=== PATIENT | male | born 1970 | race Caucasian/White ===

== ENCOUNTER 2017-02-23 21:15 | Inpatient (IN) | payer SELFPAY ==
[~2017-02-23] VITALS: Ht 172.7 cm; Wt 72.5 kg
[2017-02-23 22:28] LABS: BASOPHIL COUNT 0.1 K/uL (0-0.1); EOSINOPHIL (%) 1.7 % (0-5); EOSINOPHIL COUNT 0.2 K/uL (0-0.3); HEMATOCRIT 28.1 % (38.0-50.0); IMMATURE GRANULOCYTE (%) 1.3 % (0.0-0.7); IMMATURE GRANULOCYTE COUNT 0.2 K/uL; INSTRUMENT ABS NEUTROPHIL CT 11.2 K/uL; LYMPHOCYTE COUNT 1.6 K/uL (1.0-2.8); MCH 28.1 PG (29.0-34.0); MCHC 32.4 G/DL (30.0-36.0); MCV 86.7 FL (86-99); MEAN PLAT.VOLUME 9.1 uM^3 (9.0-12.4); MONOCYTE (%) 7.3 % (3-12); NEUTROPHIL (%) 78.1 % (45-76); NEUTROPHIL COUNT 11.2 K/uL (1.8-6.4); PLATELET COUNT 396 K/uL (156-360); RBC DIS.WIDTH-CV 13.4 % (11.8-14.6); RBC DIS.WIDTH-SD 42.5 % (39-53); RED BLOOD COUNT 3.24 M/uL (4.00-5.50); WHITE BLOOD COUNT 14.3 K/uL (4.1-10.2)
[2017-02-23 22:36] LABS: CHLORIDE 104 mEq/L (99-109); POTASSIUM 3.5 mEq/L (3.7-5.4); SODIUM 142 mEq/L (136-147)
[2017-02-23 22:38] LABS: GLUCOSE 138 mg/dL (70-99)
[2017-02-23 22:39] LABS: ANION GAP 14 MEQ/L (2-14)
[2017-02-23 22:42] LABS: GFR ESTIMATE (CALCULATED) > 59 mL/min/
[2017-02-23 22:43] LABS: UREA NITROGEN (BUN) 12 mg/dL (9-23)
[2017-02-23 22:48] LABS: TROP-I INTERPRETATION NEGATIVE; TROPONIN-I < 0.01 ng/mL (0.0-0.30)
[2017-02-24] MEDS ORDERED: OXYMORPHONE HCL15 MG PO (01:16)
[2017-02-24] MEDS ORDERED: GABAPENTIN600 MG PO (01:16)
[2017-02-24] MEDS ORDERED: OXYCODONE HCL15 MG PO (01:16)
[2017-02-24 02:10] LABS: BODY FLUID EOSINOPHILS 3 % (0-25); BODY FLUID WBC'S 159 /MM^3 (0-500); MONONUCLEAR WBC'S 54 %; POLYNUCLEAR WBC'S 43 % (0-25); TYPE OF FLUID PLEURAL
[2017-02-24 02:44] LABS: BODY FLUID RBC'S 0 /MM^3 (0-100)
[2017-02-24 02:45] LABS: COMMENT MANY MACROHPAGES
[2017-02-24 02:45] LABS: BODY FLUID PROTEIN 4.7 G/DL
[2017-02-24 05:14] VITALS: BP 89/58
[2017-02-24 08:00] VITALS: BP 108/72
[2017-02-24 10:15] LABS: HEMATOCRIT 25.9 % (38.0-50.0); MCH 28.5 PG (29.0-34.0); MCHC 32.4 G/DL (30.0-36.0); MCV 87.8 FL (86-99); MEAN PLAT.VOLUME 8.9 uM^3 (9.0-12.4); PLATELET COUNT 352 K/uL (156-360); RBC DIS.WIDTH-CV 13.6 % (11.8-14.6); RBC DIS.WIDTH-SD 43.8 % (39-53); RED BLOOD COUNT 2.95 M/uL (4.00-5.50); WHITE BLOOD COUNT 12.4 K/uL (4.1-10.2)
[2017-02-24 10:44] LABS: ANION GAP 8 MEQ/L (2-14); CHLORIDE 105 MEQ/L (99-109); POTASSIUM 3.5 MEQ/L (3.7-5.4); SAMPLE HEMOLYSIS CHECK 0; SAMPLE ICTERIC CHECK 0; SAMPLE LIPEMIA CHECK 0; SODIUM 139 MEQ/L (136-147)
[2017-02-24 10:50] LABS: GFR ESTIMATE (CALCULATED) > 59 mL/min/; GLUCOSE 114 mg/dL (70-99); UREA NITROGEN (BUN) 11 mg/dL (9-23)
[2017-02-24 16:45] LABS: ADD MIUA? NO; BILIRUBIN NEGATIVE; BLOOD NEGATIVE; COLOR YELLOW ((YELLOW)); GLUCOSE (STRIP) NEGATIVE; KETONES NEGATIVE; LEUKOCYTES NEGATIVE; NITRITE NEGATIVE; PROTEIN (STRIP) NEGATIVE; UCUL ADDED? NO
[2017-02-24 16:52] LABS: SPECIFIC GRAVITY > 1.060 (1.000-1.030)
[2017-02-24 17:00] VITALS: BP 103/64
[2017-02-24 19:31] VITALS: BP 110/64
[2017-02-25 00:21] VITALS: BP 95/53
[2017-02-25 03:38] VITALS: BP 103/55
[2017-02-25 07:40] VITALS: BP 101/59
[2017-02-25 08:21] LABS: EOSINOPHIL COUNT 0.3 K/uL (0-0.3); IMMATURE GRANULOCYTE (%) 1.4 % (0.0-0.7); IMMATURE GRANULOCYTE COUNT 0.1 K/uL; INSTRUMENT ABS NEUTROPHIL CT 6.7 K/uL; LYMPHOCYTE COUNT 1.6 K/uL (1.0-2.8); MCH 27.5 PG (29.0-34.0); MCHC 31.5 G/DL (30.0-36.0); MCV 87.2 FL (86-99); MEAN PLAT.VOLUME 8.9 uM^3 (9.0-12.4); MONOCYTE (%) 7.8 % (3-12); MONOCYTE COUNT 0.7 K/uL (0-0.8); NEUTROPHIL (%) 70.6 % (45-76); NEUTROPHIL COUNT 6.7 K/uL (1.8-6.4); PLATELET COUNT 395 K/uL (156-360); RBC DIS.WIDTH-CV 13.6 % (11.8-14.6); RBC DIS.WIDTH-SD 43.7 % (39-53); RED BLOOD COUNT 2.98 M/uL (4.00-5.50); WHITE BLOOD COUNT 9.4 K/uL (4.1-10.2)
[2017-02-25 08:24] LABS: INTERNAL CONTROL VALID? YES
[2017-02-25 08:50] LABS: ANION GAP 7 MEQ/L (2-14); CHLORIDE 104 MEQ/L (99-109); GFR ESTIMATE (CALCULATED) > 59 mL/min/ (58.99-99999); GLUCOSE 94 mg/dL (70-99); POTASSIUM 4.2 MEQ/L (3.7-5.4); SAMPLE HEMOLYSIS CHECK 0; SAMPLE ICTERIC CHECK 0; SAMPLE LIPEMIA CHECK 0; SODIUM 140 MEQ/L (136-147); UREA NITROGEN (BUN) 7 mg/dL (9-23)
[2017-02-25 11:04] VITALS: BP 96/60
[2017-02-25 13:56] LABS: MCV 86.8 FL (86-99)
[2017-02-25 14:27] LABS: IRON 18 MCG/DL (35-150)
[2017-02-25 14:42] LABS: FERRITIN 187 NG/ML (22-322)
[2017-02-25] MEDS ORDERED: SYNTHROID100 MCG PO (15:18)
[2017-02-25 19:56] VITALS: BP 104/63
[2017-02-26 00:16] VITALS: BP 97/64
[2017-02-26 04:16] VITALS: BP 105/67
[2017-02-26 07:22] VITALS: BP 105/58
[2017-02-26 08:31] LABS: HEMATOCRIT 26.4 % (38.0-50.0); MCH 28.1 PG (29.0-34.0); MCHC 32.2 G/DL (30.0-36.0); MCV 87.4 FL (86-99); MEAN PLAT.VOLUME 9.1 uM^3 (9.0-12.4); PLATELET COUNT 412 K/uL (156-360); RBC DIS.WIDTH-CV 13.7 % (11.8-14.6); RBC DIS.WIDTH-SD 43.8 % (39-53); RED BLOOD COUNT 3.02 M/uL (4.00-5.50); WHITE BLOOD COUNT 10.5 K/uL (4.1-10.2)
[2017-02-26 11:05] VITALS: BP 94/63
[2017-02-26 15:24] VITALS: BP 105/64
[2017-02-26 23:31] VITALS: BP 105/62
[2017-02-27 07:04] VITALS: BP 103/58
[2017-02-27 09:16] LABS: HEMATOCRIT 27.7 % (38.0-50.0); MCH 27.5 PG (29.0-34.0); MCHC 31.4 G/DL (30.0-36.0); MCV 87.7 FL (86-99); MEAN PLAT.VOLUME 8.8 uM^3 (9.0-12.4); PLATELET COUNT 453 K/uL (156-360); RBC DIS.WIDTH-CV 13.8 % (11.8-14.6); RBC DIS.WIDTH-SD 44.4 % (39-53); RED BLOOD COUNT 3.16 M/uL (4.00-5.50); WHITE BLOOD COUNT 11.5 K/uL (4.1-10.2)
[2017-02-27 09:25] LABS: INTER. NORMALIZED RATIO 1.2; PROTHROMBIN TIME 13.7 SEC (10.2-12.9)
[2017-02-27 09:28] LABS: PTT 43.5 SEC (25-37)
[2017-02-27 15:05] VITALS: BP 100/65
[2017-02-27 23:32] VITALS: BP 97/52
[2017-02-28 06:26] LABS: HEMATOCRIT 29.6 % (38.0-50.0); MCH 27.4 PG (29.0-34.0); MCHC 31.8 G/DL (30.0-36.0); MCV 86.3 FL (86-99); MEAN PLAT.VOLUME 8.7 uM^3 (9.0-12.4); PLATELET COUNT 474 K/uL (156-360); RBC DIS.WIDTH-CV 13.9 % (11.8-14.6); RBC DIS.WIDTH-SD 43.6 % (39-53); RED BLOOD COUNT 3.43 M/uL (4.00-5.50); WHITE BLOOD COUNT 14.3 K/uL (4.1-10.2)
[2017-02-28 06:57] LABS: ANION GAP 9 MEQ/L (2-14); CHLORIDE 97 MEQ/L (99-109); GFR ESTIMATE (CALCULATED) > 59 mL/min/ (58.99-99999); GLUCOSE 98 mg/dL (70-99); MAGNESIUM 1.7 mg/dl (1.3-2.7); POTASSIUM 4.6 MEQ/L (3.7-5.4); SAMPLE HEMOLYSIS CHECK 0; SAMPLE ICTERIC CHECK 0; SAMPLE LIPEMIA CHECK 0; SODIUM 137 MEQ/L (136-147); UREA NITROGEN (BUN) 7 mg/dL (9-23)
[2017-02-28 07:20] VITALS: BP 85/50
[2017-02-28 09:54] VITALS: BP 99/66
[2017-02-28 16:21] VITALS: BP 99/55
[2017-03-01 00:26] VITALS: BP 84/48; BP 97/62
[2017-03-01 06:57] LABS: HEMATOCRIT 26.3 % (38.0-50.0); MCH 27.8 PG (29.0-34.0); MCHC 32.3 G/DL (30.0-36.0); MCV 85.9 FL (86-99); MEAN PLAT.VOLUME 8.7 uM^3 (9.0-12.4); PLATELET COUNT 429 K/uL (156-360); RBC DIS.WIDTH-SD 44.3 % (39-53); RED BLOOD COUNT 3.06 M/uL (4.00-5.50); WHITE BLOOD COUNT 15.4 K/uL (4.1-10.2)
[2017-03-01 07:23] VITALS: BP 99/58
[2017-03-01 15:27] VITALS: BP 89/55
[2017-03-01 17:58] VITALS: BP 98/62
[2017-03-02 00:39] VITALS: BP 110/68
[2017-03-02 07:24] VITALS: BP 106/64
[2017-03-02 15:17] VITALS: BP 108/64
[2017-03-02 23:41] VITALS: BP 106/51
[2017-03-03 06:22] LABS: HEMATOCRIT 24.5 % (38.0-50.0); MCH 27.3 PG (29.0-34.0); MCHC 31.8 G/DL (30.0-36.0); MCV 85.7 FL (86-99); MEAN PLAT.VOLUME 8.9 uM^3 (9.0-12.4); PLATELET COUNT 471 K/uL (156-360); RBC DIS.WIDTH-CV 13.9 % (11.8-14.6); RBC DIS.WIDTH-SD 43.4 % (39-53); RED BLOOD COUNT 2.86 M/uL (4.00-5.50); WHITE BLOOD COUNT 16.8 K/uL (4.1-10.2)
[2017-03-03 06:53] LABS: ANION GAP 7 MEQ/L (2-14); CHLORIDE 102 MEQ/L (99-109); GFR ESTIMATE (CALCULATED) > 59 mL/min/ (58.99-99999); POTASSIUM 4.3 MEQ/L (3.7-5.4); SAMPLE HEMOLYSIS CHECK 0; SAMPLE ICTERIC CHECK 0; SAMPLE LIPEMIA CHECK 0; SODIUM 139 MEQ/L (136-147); UREA NITROGEN (BUN) 10 mg/dL (9-23)
[2017-03-03 06:57] LABS: GLUCOSE 151 mg/dL (70-99)
[2017-03-03 07:49] VITALS: BP 95/54
[2017-03-03 16:19] VITALS: BP 120/76
[2017-03-03 23:51] VITALS: BP 109/69
[2017-03-04 06:43] LABS: EOSINOPHIL (%) 0.1 % (0-5); HEMATOCRIT 26.7 % (38.0-50.0); IMMATURE GRANULOCYTE (%) 4.5 % (0.0-0.7); IMMATURE GRANULOCYTE COUNT 0.7 K/uL; INSTRUMENT ABS NEUTROPHIL CT 12.4 K/uL; LYMPHOCYTE COUNT 2.1 K/uL (1.0-2.8); MCH 27.2 PG (29.0-34.0); MCHC 31.5 G/DL (30.0-36.0); MCV 86.4 FL (86-99); MEAN PLAT.VOLUME 8.8 uM^3 (9.0-12.4); MONOCYTE COUNT 1.2 K/uL (0-0.8); NEUTROPHIL (%) 75.2 % (45-76); NEUTROPHIL COUNT 12.4 K/uL (1.8-6.4); NRBC (%) 0.2 /100 WBC (0-0); PLATELET COUNT 508 K/uL (156-360); RBC DIS.WIDTH-SD 44.2 % (39-53); RED BLOOD COUNT 3.09 M/uL (4.00-5.50); WHITE BLOOD COUNT 16.4 K/uL (4.1-10.2)
[2017-03-04 07:09] LABS: ANION GAP 10 MEQ/L (2-14); CHLORIDE 103 MEQ/L (99-109); GFR ESTIMATE (CALCULATED) > 59 mL/min/ (58.99-99999); GLUCOSE 148 mg/dL (70-99); POTASSIUM 4.1 MEQ/L (3.7-5.4); SAMPLE HEMOLYSIS CHECK 0; SAMPLE ICTERIC CHECK 0; SAMPLE LIPEMIA CHECK 0; SODIUM 141 MEQ/L (136-147); UREA NITROGEN (BUN) 10 mg/dL (9-23)
[2017-03-04 07:44] VITALS: BP 94/52
[2017-03-04 14:49] LABS: TYPE OF FLUID PLEURAL
[2017-03-04 15:24] LABS: LACTATE DEHYDROGENASE 168 IU/L (20-246)
[2017-03-04 15:33] LABS: BODY FLUID RBC'S 206 /MM^3 (0-100); BODY FLUID WBC'S 1722 /MM^3 (0-500); RED CELL AREA COUNTED 18; RED CELL DILUTION 10; WBC AREA COUNTED 18; WBC DILUTION 10; WHITE CELL RAW COUNT 310
[2017-03-04 15:35] LABS: BODY FLUID EOSINOPHILS 0 % (0-25); MONONUCLEAR WBC'S 0 %; POLY RAW COUNT 100; POLYNUCLEAR WBC'S 100 % (0-25)
[2017-03-04 15:46] LABS: BODY FLUID LDH 239 IU/L; BODY FLUID PROTEIN 4.6 G/DL
[2017-03-04 16:15] VITALS: BP 125/73
[2017-03-04 23:32] VITALS: BP 116/71
[2017-03-05 06:55] LABS: HEMATOCRIT 29.2 % (38.0-50.0); MCH 26.5 PG (29.0-34.0); MCHC 30.8 G/DL (30.0-36.0); MCV 85.9 FL (86-99); MEAN PLAT.VOLUME 8.6 uM^3 (9.0-12.4); NRBC (%) 0.8 /100 WBC (0-0); PLATELET COUNT 622 K/uL (156-360); RBC DIS.WIDTH-CV 14.4 % (11.8-14.6); RBC DIS.WIDTH-SD 44.8 % (39-53); WHITE BLOOD COUNT 16.9 K/uL (4.1-10.2)
[2017-03-05 07:01] VITALS: BP 110/65
[2017-03-05 07:26] LABS: ABS NEUTROPHIL COUNT 11.3; ANISOCYTOSIS 1+; ATYPICAL LYMPHOCYTE 2.7 %; BAND NEUTROPHILS 2.7 % (0-8.0); BASOPHILS 0.9 %; EOSINOPHIL ABS CT 0; INSTRUMENT ABS NEUTROPHIL CT 11.2 K/uL; LYMPHOCYTES 21.4 % (15.0-45.0); METAMYELOCYTES 0.9 %; MYELOCYTES 1.8 %; NUCLEATED RBC'S 0.9; OVALOCYTES 1+; PLAT.SUFFICIENCY INCREASED; POIKILOCYTOSIS 1+; POLYCHROMASIA 1+; SEG.NEUTROPHILS 64.3 % (46.0-76.0)
[2017-03-05 07:28] LABS: ANION GAP 12 MEQ/L (2-14); CHLORIDE 103 MEQ/L (99-109); GFR ESTIMATE (CALCULATED) > 59 mL/min/ (58.99-99999); GLUCOSE 128 mg/dL (70-99); POTASSIUM 4.1 MEQ/L (3.7-5.4); SAMPLE HEMOLYSIS CHECK 0; SAMPLE ICTERIC CHECK 0; SAMPLE LIPEMIA CHECK 0; SODIUM 141 MEQ/L (136-147); UREA NITROGEN (BUN) 12 mg/dL (9-23)
[2017-03-05 15:15] VITALS: BP 123/74
[2017-03-05 23:40] VITALS: BP 110/56
[2017-03-06 06:21] LABS: HEMATOCRIT 27.5 % (38.0-50.0); MCH 26.6 PG (29.0-34.0); MCHC 30.9 G/DL (30.0-36.0); MCV 86.2 FL (86-99); MEAN PLAT.VOLUME 8.5 uM^3 (9.0-12.4); NRBC (%) 0.8 /100 WBC (0-0); PLATELET COUNT 566 K/uL (156-360); RBC DIS.WIDTH-CV 14.6 % (11.8-14.6); RED BLOOD COUNT 3.19 M/uL (4.00-5.50)
[2017-03-06 06:48] LABS: ANION GAP 8 MEQ/L (2-14); CHLORIDE 103 MEQ/L (99-109); GFR ESTIMATE (CALCULATED) > 59 mL/min/ (58.99-99999); GLUCOSE 107 mg/dL (70-99); SAMPLE HEMOLYSIS CHECK 0; SAMPLE ICTERIC CHECK 0; SAMPLE LIPEMIA CHECK 0; SODIUM 141 MEQ/L (136-147); UREA NITROGEN (BUN) 12 mg/dL (9-23)
[2017-03-06 06:49] LABS: MAGNESIUM 2.2 mg/dl (1.3-2.7)
[2017-03-06 07:51] VITALS: BP 124/72
[2017-03-06 15:50] VITALS: BP 130/74
[2017-03-07 00:11] VITALS: BP 123/84
[2017-03-07 07:03] LABS: HEMATOCRIT 29.9 % (38.0-50.0); MCH 26.7 PG (29.0-34.0); MCHC 31.4 G/DL (30.0-36.0); MCV 84.9 FL (86-99); MEAN PLAT.VOLUME 8.6 uM^3 (9.0-12.4); NRBC (%) 0.5 /100 WBC (0-0); PLATELET COUNT 592 K/uL (156-360); RBC DIS.WIDTH-CV 14.6 % (11.8-14.6); RBC DIS.WIDTH-SD 44.8 % (39-53); RED BLOOD COUNT 3.52 M/uL (4.00-5.50)
[2017-03-07 07:23] VITALS: BP 125/71
[2017-03-07 16:00] VITALS: BP 116/67
[2017-03-07 17:09] LABS: BODY FLUID PH 7.8 (())
[2017-03-07 23:51] VITALS: BP 112/69
[2017-03-08 06:47] LABS: HEMATOCRIT 30.4 % (38.0-50.0); MCH 26.8 PG (29.0-34.0); MCHC 30.9 G/DL (30.0-36.0); MCV 86.6 FL (86-99); MEAN PLAT.VOLUME 8.6 uM^3 (9.0-12.4); NRBC (%) 0.2 /100 WBC (0-0); PLATELET COUNT 594 K/uL (156-360); RBC DIS.WIDTH-CV 14.9 % (11.8-14.6); RBC DIS.WIDTH-SD 47.1 % (39-53); RED BLOOD COUNT 3.51 M/uL (4.00-5.50); WHITE BLOOD COUNT 12.8 K/uL (4.1-10.2)
[2017-03-08 07:18] LABS: ANION GAP 9 MEQ/L (2-14); CHLORIDE 102 MEQ/L (99-109); GFR ESTIMATE (CALCULATED) > 59 mL/min/ (58.99-99999); GLUCOSE 79 mg/dL (70-99); MAGNESIUM 2.4 mg/dl (1.3-2.7); POTASSIUM 5.1 MEQ/L (3.7-5.4); SAMPLE HEMOLYSIS CHECK 0; SAMPLE ICTERIC CHECK 0; SAMPLE LIPEMIA CHECK 0; SODIUM 141 MEQ/L (136-147); UREA NITROGEN (BUN) 19 mg/dL (9-23)
[2017-03-08 07:28] VITALS: BP 115/71
[2017-03-08 15:22] VITALS: BP 103/56
[2017-03-08 23:40] VITALS: BP 109/61
[2017-03-09 06:41] LABS: MCH 26.7 PG (29.0-34.0); MCHC 30.6 G/DL (30.0-36.0); MCV 87.1 FL (86-99); MEAN PLAT.VOLUME 8.6 uM^3 (9.0-12.4); PLATELET COUNT 596 K/uL (156-360); RBC DIS.WIDTH-SD 47.4 % (39-53); RED BLOOD COUNT 3.56 M/uL (4.00-5.50); WHITE BLOOD COUNT 16.3 K/uL (4.1-10.2)
[2017-03-09 07:09] VITALS: BP 113/70
[2017-03-09 07:12] LABS: ANION GAP 8 MEQ/L (2-14); CHLORIDE 105 MEQ/L (99-109); GFR ESTIMATE (CALCULATED) > 59 mL/min/ (58.99-99999); GLUCOSE 85 mg/dL (70-99); SAMPLE HEMOLYSIS CHECK 0; SAMPLE ICTERIC CHECK 0; SAMPLE LIPEMIA CHECK 0; SODIUM 139 MEQ/L (136-147); UREA NITROGEN (BUN) 19 mg/dL (9-23)
[2017-03-09 07:14] LABS: POTASSIUM 3.9 MEQ/L (3.7-5.4)
[2017-03-09] MEDS ORDERED: FERROUS SULFAT325 MG PO (12:15)
[2017-03-09] MEDS ORDERED: NICOTINE PATCH1 EAC2 TD (12:15)
[2017-03-09] MEDS ORDERED: PREDNISONE20 MG PO (12:16)
[2017-03-09] MEDS ORDERED: AMOX TR-K CLV1 EAC4 PO (12:19)
[2017-03-09] MEDS ORDERED: DULERA 100 MCG/13 GM IH (13:50)
== END 2017-03-09 14:23 | disposition home or self-care (01) | DRG 189 ==
LOC: EME 21:15 → 5SOUTH 02-24 03:53 → EDOF 02-24 03:53 → ENRESERV 02-24 03:54 → 5SOUTH 02-24 05:03
PROVIDERS: Emergency Medicine; Family Medicine; Hospitalist; Internal Medicine; Nurse Practitioner Adult Health; Physician Assistant Medical
DX: J96.01 Acute respiratory failure with hypoxia (principal); J13 Pneumonia due to Streptococcus pneumoniae; J90 Pleural effusion, not elsewhere classified; J44.0 Chronic obstructive pulmonary disease with (acute) lower respiratory infection; D50.9 Iron deficiency anemia, unspecified; E03.9 Hypothyroidism, unspecified; F41.9 Anxiety disorder, unspecified; G89.29 Other chronic pain; M54.9 Dorsalgia, unspecified; F17.210 Nicotine dependence, cigarettes, uncomplicated; Z80.0 Family history of malignant neoplasm of digestive organs; Z91.14 Patient's other noncompliance with medication regimen
CPT/HCPCS: 32557; 71010; 71020; 71030; 71250; 71260; 76942; 80048; 81003; 82272; 82607; 82728; 82746; 82945; 83516 90; 83540; 83605; 83615; 83615 91; 83735; 83986 90; 84155; 84157; 84439; 84443; 84466; 84484; 85014; 85018; 85025; 85027; 85610; 85730; 87040; 87070; 87075; 87116; 87205; 87206; 87449; 88108; 88305; 89051; 93005; 94010; 94640; 94640 76; 94664; 94799; 99202; 99281; 99285; C1769; J1650; J1885; J1956; J2543; J7030; J7050; J7120; J7512

== ENCOUNTER 2017-09-28 15:59 | Emergency (ER) | payer OTHER ==
[~2017-09-28] VITALS: Ht 172.7 cm; Wt 70.0 kg
[~2017-09-28 15:59] MED LIST: AMOX TR-K CLV1 EAC4 PO; DULERA 100 MCG/13 GM IH; FERROUS SULFAT325 MG PO; GABAPENTIN600 MG PO; NICOTINE PATCH1 EAC2 TD; OXYCODONE HCL15 MG PO; OXYMORPHONE HCL15 MG PO; PREDNISONE20 MG PO; SYNTHROID100 MCG PO
[2017-09-28 16:53] VITALS: BP 128/73
== END 2017-09-28 16:54 | disposition left against medical advice (07) ==
LOC: EME 15:59
DX: M54.9 Dorsalgia, unspecified (principal); S00.81XA Abrasion of other part of head, initial encounter; G89.29 Other chronic pain; V49.50XA Passenger injured in collision with unspecified motor vehicles in traffic accident, initial encounter; Y93.84 Activity, sleeping; Y92.410 Unspecified street and highway as the place of occurrence of the external cause; F17.200 Nicotine dependence, unspecified, uncomplicated
CPT/HCPCS: 99281; 99284